=== PATIENT | male | born 1975 | race Caucasian/White ===

== ENCOUNTER 2017-07-20 12:37 | Emergency (ER) | payer OTHER ==
[2017-07-20 13:09] VITALS: BP 112/64
--- NOTE | 2017-07-20 13:58 | UC ---
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 last PM get had to urinate realized that he couldn't move his left leg without severe pain in his left inguinal region No fall no pop no left testicular pain no back pain he has mild bilat knee pain which he states is his baseline Unable to go to work today due to trouble ambulating has to lift his lef with his hands to move it due to pain - History Of Current Complaint Chief Complaint: UCGeneralIllness Stated Complaint: LEG PAIN Hx Obtained From: Patient Onset/Duration: Gradual Onset, Lasting Days Timing: Constant Severity Initially: Mild Severity Currently: None Pain Intensity: 0 - 0 at rest, 10 with attempts to move Pain Scale Used: 0-10 Numeric Location: Discrete At: - see im,age Character Of Pain: Sharp, Spasmodic Aggravating Factor(s): Movement Alleviating Factor(s): Rest - Risk Factors Septic Arthritis Risk Factor: Negative - Allergies/Home Medications Allergies/Adverse Reactions: Allergies Allergy/AdvReac Type Severity Reaction Status Date / Time No Known Allergies Allergy Verified 08/18/15 15:25 Home Medications: Home Medications Levothyroxine TAB* [Synthroid 75 MCG TAB*] 75 mcg PO DAILY 07/20/17 [History Confirmed 07/20/17] Sertraline* [Zoloft*] 50 mg PO DAILY 07/20/17 [History Confirmed 07/20/17] PMH/Surg Hx/FS Hx/Imm Hx Previously Healthy: Yes - Surgical History Surgical History: Yes Surgery Procedure, Year, and Place: PARATHYROID 2004; EAR TUBES CHILD; appendectomy - Family History Known Family History: Positive: Other - DJD - Social History Alcohol Use: Daily Alcohol Amount: 1/2 bottle wine Substance Use Type: Marijuana Smoking Status (MU): Never Smoked Tobacco Review of Systems Constitutional: Negative Skin: Negative Eyes: Negative ENT: Negative Respiratory: Negative Cardiovascular: Negative Gastrointestinal: Negative Genitourinary: Negative Motor: Negative Neurovascular: Negative Musculoskeletal: Arthralgia, Myalgia Neurological: Negative Psychological: Negative Is Patient Immunocompromised?: No All Other Systems Reviewed And Are Negative: Yes Physical Exam Triage Information Reviewed: Yes Appearance: Well-Appearing, No Pain Distress, Well-Nourished, Other: - Pain with any attemps to move left leg Vital Signs: Initial Vital Signs Temp 98.8 F 07/20/17 13:01 Pulse 67 07/20/17 13:01 Resp 18 07/20/17 13:01 BP 112/64 07/20/17 13:01 Pulse Ox 98 07/20/17 13:01 Vital Signs Reviewed: Yes Eyes: Positive: Conjunctiva Clear ENT: Positive: Hearing grossly normal Neck: Positive: Supple, Nontender, No Lymphadenopathy Respiratory: Positive: Lungs clear, Normal breath sounds Cardiovascular: Positive: RRR, No Murmur Musculoskeletal: Positive: ROM Intact - Full passive range of motion left hip....no pain with passive int/ext rotation no pain with axial compression of left leg, severe pain with attempts to lift leg. Neurological: Positive: Alert, Muscle Tone Normal Psychological Exam: Normal Hip Injury Course/Dx - Differential Dx/Diagnosis Provider Diagnoses: left groin strain Discharge - Discharge Plan Condition: Stable Disposition: HOME Patient Education Materials: Groin Strain (ED), Heat Pack Application (ED), Ice Pack Application (ED) Referrals: Kasi Galvez MD [Medical Doctor] - As Soon As Possible Additional Instructions: advil 3 upto 4x day with food as needed for pain cane PT consult you can try heat alternating with cold compresses Images Front/Back of Body, Lg ([place]): 1 - pain here/tender/no mass. no inguinal hernia noted. testicular exam normal. distal n/v intact
== END 2017-07-20 14:05 | disposition home or self-care (01) ==
LOC: UCEAST 12:37
DX: S39.011A Strain of muscle, fascia and tendon of abdomen, initial encounter (principal); X50.0XXA Overexertion from strenuous movement or load, initial encounter; Y93.89 Activity, other specified; Y92.9 Unspecified place or not applicable; Y99.9 Unspecified external cause status; Z72.89 Other problems related to lifestyle; F12.90 Cannabis use, unspecified, uncomplicated
CPT/HCPCS: 99212; G0463

== ENCOUNTER 2018-07-08 13:56 | Emergency (ER) | payer OTHER ==
[2018-07-08 14:14] VITALS: BP 103/60
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
== END 2018-07-08 15:25 | disposition home or self-care (01) ==
LOC: UCEAST 13:56
DX: S60.222A Contusion of left hand, initial encounter (principal); S60.221A Contusion of right hand, initial encounter; S63.92XA Sprain of unspecified part of left wrist and hand, initial encounter; S63.91XA Sprain of unspecified part of right wrist and hand, initial encounter; S60.512A Abrasion of left hand, initial encounter; S60.511A Abrasion of right hand, initial encounter; V28.0XXA Motorcycle driver injured in noncollision transport accident in nontraffic accident, initial encounter; Y92.9 Unspecified place or not applicable
CPT/HCPCS: 99211; G0463